=== PATIENT | female | born 1990 | race Caucasian/White ===

== ENCOUNTER 2024-03-05 18:54 | Emergency (ER) | payer OTHER ==
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
[2024-03-05 19:22] VITALS: TEMP 98
[2024-03-05 20:10] VITALS: BP 130/84; PULSE 80; RESP 20; O2SAT 99
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
== END 2024-03-05 21:26 | disposition home or self-care (01) ==
LOC: ED 18:54
DX: S09.90XA Unspecified injury of head, initial encounter (principal); V89.2XXA Person injured in unspecified motor-vehicle accident, traffic, initial encounter; R51.9 Headache, unspecified
CPT/HCPCS: 70450; 99285